=== PATIENT | female | born 1980 | race Caucasian/White ===

== ENCOUNTER 2024-07-26 12:41 | Outpatient (CLI) | payer OTHER, SELFPAY | END 2024-07-26 12:42 | disposition home or self-care (01) | PROVIDERS: Visit Provider Physician Assistant | DX: L03.011 Cellulitis of right finger (principal); L08.9 Local infection of the skin and subcutaneous tissue, unspecified; M79.644 Pain in right finger(s); T81.49XA Infection following a procedure, other surgical site, initial encounter | CPT/HCPCS: 87070; 87186 ==